=== PATIENT | female | born 1970 | race Caucasian/White ===

== ENCOUNTER → 2017-09-10 18:38 | Outpatient (CLI) | payer BC ==
[2013-05-01 10:52] VITALS: BMI 28.4
[~2017-09-10 18:38] MED LIST: CYMBALTA60 MG PO; INDERAL10 MG; NORCO 5/325 TAB1 TA1 PO
== END | disposition home or self-care (01) ==
LOC: D.MAMMO 15:30
DX: Z12.31 Encounter for screening mammogram for malignant neoplasm of breast (principal)

== ENCOUNTER → 2017-10-07 16:34 | Outpatient (CLI) | payer BC ==
[2013-05-01 10:52] VITALS: BMI 28.4
== END | disposition home or self-care (01) ==
LOC: D.MAMMO 08:30
DX: R92.8 Other abnormal and inconclusive findings on diagnostic imaging of breast (principal)

== ENCOUNTER 2020-10-13 19:00 | Outpatient (CLI) | payer BC ==
[2013-05-01 10:52] VITALS: BMI 28.4
== END 2020-10-13 23:59 | disposition home or self-care (01) ==
LOC: D.MAMMO 19:00
PROVIDERS: ATTEND Internal Medicine
DX: Z12.31 Encounter for screening mammogram for malignant neoplasm of breast (principal)